=== PATIENT | male | born 1980 | race Native Hawaiian/Other Pacific Islander ===

== ENCOUNTER 2020-01-03 08:41 | Emergency (ER) | payer BC ==
[~2020-01-03] VITALS: Ht 165.1 cm; Wt 74.8 kg
[2020-01-03 08:51] VITALS: TEMP 98.9
[2020-01-03 09:13] LABS: POTASSIUM 4.2 mmol/L (3.6-5.2)
[2020-01-03 09:33] LABS: PARTIAL THROMBOPLASTIN TIME 26.9 SECONDS (24.5-33.6)
[2020-01-03 10:05] LABS: PLATELET COUNT 287 K/uL (142-355)
[2020-01-03 14:04] VITALS: BP 134/77
== END 2020-01-03 16:12 | disposition short-term general hospital (02) ==
LOC: ED 08:41
PROVIDERS: Family Medicine
DX: R07.89 Other chest pain (principal); R74.8 Abnormal levels of other serum enzymes; U07.1 COVID-19
CPT/HCPCS: 80053; 82550; 84484; 85027; 85610; 85730; 93005; 96365; 96375; 99285; J1644

== ENCOUNTER 2020-02-14 14:43 | Outpatient (CLI) | payer BC | END 2020-02-14 23:28 | disposition home or self-care (01) | LOC: RESP 14:43 | DX: B33.22 Viral myocarditis (principal) ==